=== PATIENT | female | born 1985 | race Caucasian/White ===

== ENCOUNTER 2025-05-14 12:46 | Emergency (ER) | payer OTHER ==
[~2025-05-14] VITALS: Ht 170.2 cm; Wt 66.0 kg
[2025-05-14] MEDS ORDERED: ADDERALL XR 5 MG5 MG PO (13:09)
[2025-05-14] MEDS ORDERED: ACYCLOVIR400 MG PO (13:09)
[2025-05-14] MEDS ORDERED: LEVOTHYROXINE88 MC1 PO (13:09)
[2025-05-14] MEDS ORDERED: TOPAMAX15 MG PO (13:10)
[2025-05-14 13:34] LABS: BASOPHILS 0.1 % (0.1-1.2); EOSINOPHILS 0.1 % (0.7-5.8); LYMPHOCYTES 12.7 % (19.3-51.7); MCH 34.4 PG (25.6-32.2); MCHC 35.2 g/dL (32.2-35.5); MCV 97.8 fL (79.4-94.8); MONOCYTES 8.2 % (4.7-12.5); NEUTROPHILS 78.8 % (34.0-71.1); RBC 3.63 M/uL (3.93-5.22)
[2025-05-14 13:35] LABS: BLOOD/HGB, URINE TRACE-I (Negative); KETONE, URINE NEGATIVE (Negative); LEUK ESTERASE, URINE NEGATIVE (negative); NITRITE, URINE NEGATIVE (negative)
[2025-05-14 13:42] LABS: BACTERIA, URINE NONE SEEN /hpf (negative); CASTS, URINE NONE SEEN \\lpf; CRYSTALS, URINE NONE SEEN (0-1+); EPITHELIAL CELLS, URINE SQUAMOUS 2+ /lpf (0-1+); REFLEX CULTURE, URINE No (No)
[2025-05-14 13:45] LABS: ALT (SGPT) 14.0 U/L (14-59); AST (SGOT) 11.0 U/L (15-37); GLOMERULAR FILTRATION RATE,EST 87.0 mL/min (>60); PROTEIN, TOTAL 7.3 g/dL (6.4-8.2); UREA NITROGEN 3.0 mg/dL (7-18)
[2025-05-14] MEDS ORDERED: CIPRO500 MG PO (14:47)
[2025-05-14] MEDS ORDERED: METRONIDAZOLE500 MG PO (14:47)
[2025-05-14] MEDS ORDERED: ONDANSETRON ODT8 MG PO (14:49)
[2025-05-14] MEDS ORDERED: CIPROFLOXACIN 500 MG TAB PO ONE (15:00)
[2025-05-14 15:08] VITALS: BP 118/96
== END 2025-05-14 15:09 | disposition home or self-care (01) ==
LOC: ED 12:46
PROVIDERS: Emergency Medicine
DX: K57.32 Diverticulitis of large intestine without perforation or abscess without bleeding (principal); E87.6 Hypokalemia; E03.9 Hypothyroidism, unspecified; Z79.890 Hormone replacement therapy; Z79.899 Other long term (current) drug therapy
CPT/HCPCS: 36415; 74177; 80053; 81001; 83690; 84703; 85025; 99284-25; Q9967